=== PATIENT | female | born 1930 | race African-American/Black ===

== ENCOUNTER 2020-12-31 07:15 | Inpatient (IN) ==
[2020-12-31] MEDS ORDERED: BUPIVACAINE 0.5% 50 ML VIAL ONE (08:27)
[2020-12-31] MEDS ORDERED: MIDAZOLAM 2 MG/2 ML VIAL ONE (08:28)
[2020-12-31] MEDS ORDERED: LIDOCAINE 2% 5 ML VIAL ONE (08:28)
[2020-12-31] MEDS ORDERED: SEVOFLURANE 1 UNIT/15 MINUTE INH ONE (08:28)
[2020-12-31] MEDS ORDERED: propofoL 200 MG/20 ML VIAL IV ONE (08:28)
[2020-12-31] MEDS ORDERED: ONDANSETRON 4 MG/2 ML VIAL ONE (08:28)
[2020-12-31] MEDS ORDERED: fentaNYL 100 MCG/2 ML VIAL ONE (08:28)
[2020-12-31] MEDS ORDERED: VANCOMYCIN 1,000 MG VIAL ONE (08:30)
[2020-12-31 08:39] LABS: Basophils % 0.4 % (0.0-0.8); Hematocrit 21.9 VOL% (35.7-47.0); Hemoglobin 6.6 GM/DL (12.0-16.0); Immature Granulocytes % 0.6 %; Immature Granulocytes Absolute 0.06 #; Lymphocytes # 1.3 10*3/uL (1.4-4.0); Lymphocytes % 13.5 % (21.3-54.2); Mean Corpuscular HGB Conc 30.1 GM/DL (32-36); Mean Corpuscular Volume 90.1 FL (87-102); Mean Platelet Volume 8.3 FL (9.6-12.0); Monocytes % 7.7 % (1.7-12.7); Neutrophils % 77.8 % (38.7-73.9); Platelet Count 571 T/CUMM (130-400); Red Blood Count 2.43 MC/CUMM (3.8-5.5); Red Cell Distribution Width 17.9 % (9.3-17.3); White Blood Count 9.2 T/CUMM (4-12)
[2020-12-31] MEDS ORDERED: METOPROLOL TARTRATE 25 MG TABLET ONE (08:45)
[2020-12-31 08:50] LABS: INR 1.1; PT Patient Result 12.2 SECS (10.5-12.0); Partial Thromboplastin Time 25.4 SECS (23.9-33.8)
[2020-12-31] MEDS ORDERED: VANCOMYCIN INJ 1,000 MG in SODIUM CHLORIDE 0.9% 250 ML IV ONE (08:54)
[2020-12-31] MEDS ORDERED: METOPROLOL TARTRATE 25 MG TABLET PO ONE (08:54)
[2020-12-31] MEDS ORDERED: LACTATED RINGERS 1,000 ML IV SCH (09:00)
[2020-12-31 09:04] LABS: Calcium 9.4 MG/DL (8.5-10.1); Hypochromasia 1+; Lymphocytes 14 % (20-55); Microcytosis 1+; Osmolality,Calculated 272.1 MOS/KG (273-304); Polychromasia Slight; Potassium 3.6 MMOL/L (3.5-5.1); Segmented Neutrophils 79 % (50-85); Total Cells Counted 100
[2020-12-31 09:05] LABS: Platelet Estimate Increased
[2020-12-31] MEDS ORDERED: ROPIVACAINE 0.5% 30 ML VIAL ONE (09:16)
[2020-12-31] MEDS ORDERED: FAMOTIDINE 20 MG/2 ML VIAL IV ONE (09:16)
[2020-12-31] MEDS ORDERED: LIDOCAINE 1% 5 ML VIAL ONE (09:16)
[2020-12-31] MEDS ORDERED: DEXAMETHASONE 4 MG/1 ML VIAL ONE (09:16)
[2020-12-31] MEDS ORDERED: PHENYLEPHRINE 1 MG/10 ML SYRINGE IV ONE (10:14)
[2020-12-31] MEDS ORDERED: DEXTROSE 50% 25 GM/50 ML VIAL IV PRN (10:19)
[2020-12-31] MEDS ORDERED: HYDROmorphone 2 MG/1 ML VIAL IV PRN (10:19)
[2020-12-31] MEDS ORDERED: GLUCAGON 1 MG VIAL IM PRN (10:19)
[2020-12-31] MEDS ORDERED: ACETAMINOPHEN 325 MG TABLET PO PRN (10:19)
[2020-12-31] MEDS ORDERED: SODIUM CHLORIDE 0.9% 1,000 ML IV PRN (12:23)
[2020-12-31 12:49] LABS: % Iron Saturation 13.9 % (18-50)
[2020-12-31 13:03] LABS: Ferritin 267.8 ng/ml (8-252)
[2020-12-31] MEDS: INSULIN REGULAR 100 UNIT/ML SUBCUT SCH ×3 (14:07→21:10)
[2020-12-31] MEDS: LACTATED RINGERS 1,000 ML IV SCH (17:58)
[2020-12-31] MEDS ORDERED: METOPROLOL TARTRATE 100 MG TABLET PO SCH (21:00)
[2020-12-31] MEDS: hydroCHLOROthiazide 25 MG TABLET PO SCH (21:09)
[2020-12-31] MEDS: METOPROLOL TARTRATE 50 MG TABLET PO SCH (21:09)
[2020-12-31] MEDS: ASPIRIN EC 81 MG TABLET PO SCH (21:09)
[2020-12-31] MEDS: BRIMONIDINE 0.1% OPH SOLN 5 ML BOTTLE BOTH EYES SCH (21:10)
[2020-12-31] MEDS: VANCOMYCIN INJ 1,000 MG in SODIUM CHLORIDE 0.9% 250 ML IV SCH (21:10)
[2021-01-01 01:09] LABS: Basophils % 0.1 % (0.0-0.8); Immature Granulocytes % 0.6 %; Immature Granulocytes Absolute 0.06 #; Lymphocytes # 1.3 10*3/uL (1.4-4.0); Lymphocytes % 12.3 % (21.3-54.2); Mean Corpuscular HGB Conc 30.4 GM/DL (32-36); Mean Platelet Volume 9.5 FL (9.6-12.0); Monocytes % 6.8 % (1.7-12.7); Neutrophils % 80.2 % (38.7-73.9); Platelet Count 472 T/CUMM (130-400); White Blood Count 10.7 T/CUMM (4-12)
[2021-01-01 01:12] LABS: Hemoglobin 5.2 GM/DL (12.0-16.0)
[2021-01-01 01:13] LABS: Hematocrit 17.1 VOL% (35.7-47.0)
[2021-01-01 03:04] LABS: Potassium 4.5 MMOL/L (3.5-5.1)
[2021-01-01 03:06] LABS: Calcium 8.6 MG/DL (8.5-10.1)
[2021-01-01 03:07] LABS: Osmolality,Calculated 271.2 MOS/KG (273-304)
[2021-01-01] MEDS ORDERED: ENOXAPARIN 30 MG/0.3 ML SYRINGE SUBCUT SCH (04:30)
[2021-01-01] MEDS: INSULIN REGULAR 100 UNIT/ML SUBCUT SCH ×4 (07:47→20:45)
[2021-01-01] MEDS ORDERED: SODIUM CHLORIDE 0.9% 1,000 ML IV PRN (08:02)
[2021-01-01] MEDS: LACTATED RINGERS 1,000 ML IV SCH (08:10)
[2021-01-01 08:29] LABS: Free T4 (Free Thyroxine) 1.83 NG/DL (0.76-1.46)
[2021-01-01] MEDS: VANCOMYCIN INJ 1,000 MG in SODIUM CHLORIDE 0.9% 250 ML IV SCH ×2 (08:52→22:15)
[2021-01-01] MEDS: METOPROLOL TARTRATE 50 MG TABLET PO SCH ×2 (08:53→22:11)
[2021-01-01] MEDS: BRIMONIDINE 0.1% OPH SOLN 5 ML BOTTLE BOTH EYES SCH ×2 (08:55→22:10)
[2021-01-01] MEDS ORDERED: PANTOPRAZOLE 40 MG TABLET PO SCH (09:00)
[2021-01-01] MEDS ORDERED: FERRIC GLUCONATE COMPLEX 125 MG in SODIUM CHLORIDE 0.9% 100 ML IV SCH (09:00)
[2021-01-01] MEDS: SODIUM HYPOCHLORITE 0.25% IRRIG 473 ML BOTTLE TOP SCH ×2 (09:57→23:10)
[2021-01-01] MEDS: ONDANSETRON 4 MG/2 ML VIAL IV PRN ×2 (11:20→17:44)
[2021-01-01] MEDS: ASPIRIN EC 81 MG TABLET PO SCH (22:11)
[2021-01-01] MEDS: hydroCHLOROthiazide 25 MG TABLET PO SCH (22:11)
[2021-01-02] MEDS ORDERED: diphenhydrAMINE CAP 25 MG CAPSULE PO ONE (02:56)
[2021-01-02] MEDS ORDERED: FAMOTIDINE INJ 40 MG in SODIUM CHLORIDE 0.9% 100 ML IV ONE (02:58)
[2021-01-02] MEDS ORDERED: ACETAMINOPHEN 500 MG TABLET PO ONE (03:00)
[2021-01-02 06:50] LABS: Basophils % 0.1 % (0.0-0.8); Hematocrit 19.2 VOL% (35.7-47.0); Immature Granulocytes % 1.6 %; Immature Granulocytes Absolute 0.33 #; Lymphocytes # 1.3 10*3/uL (1.4-4.0); Lymphocytes % 5.9 % (21.3-54.2); Mean Corpuscular HGB Conc 29.2 GM/DL (32-36); Mean Corpuscular Volume 95.5 FL (87-102); Mean Platelet Volume 9.1 FL (9.6-12.0); Monocytes % 8.9 % (1.7-12.7); NRBC # 0.07 10*3/uL; Neutrophils % 83.5 % (38.7-73.9); Platelet Count 516 T/CUMM (130-400); Red Blood Count 2.01 MC/CUMM (3.8-5.5); Red Cell Distribution Width 18.3 % (9.3-17.3); White Blood Count 21.1 T/CUMM (4-12)
[2021-01-02 06:52] LABS: Hemoglobin 5.6 GM/DL (12.0-16.0)
[2021-01-02 07:08] LABS: Hypochromasia 2+; Lymphocytes 6 % (20-55); Microcytosis 1+; Platelet Estimate Adequate; Segmented Neutrophils 85 % (50-85); Total Cells Counted 100
[2021-01-02 07:16] LABS: Calcium 8.8 MG/DL (8.5-10.1); Osmolality,Calculated 271.4 MOS/KG (273-304); Potassium 5.7 MMOL/L (3.5-5.1)
[2021-01-02] MEDS ORDERED: HYDROCORTISONE 100 MG VIAL IV SCH (07:35)
[2021-01-02] MEDS ORDERED: NOREPINEPHRINE 8 MG in SODIUM CHLORIDE 0.9% 242 ML IV PRN (07:37)
[2021-01-02] MEDS ORDERED: NOREPINEPHRINE 4 MG/4 ML VIAL IV ONE ×3 (07:44→07:47)
[2021-01-02] MEDS ORDERED: SODIUM BICARBONATE 50 MEQ/50 ML SYRINGE IV ONE ×2 (07:45→07:47)
[2021-01-02] MEDS ORDERED: EPINEPHrine 1 MG/10 ML SYRINGE ONE ×3 (07:45→08:28)
[2021-01-02] MEDS ORDERED: HYDROCORTISONE 100 MG VIAL ONE (07:45)
[2021-01-02] MEDS ORDERED: CALCIUM CHLORIDE 1,000 MG/10 ML SYRINGE IV ONE ×2 (07:45→08:09)
[2021-01-02] MEDS ORDERED: ATROPINE 1 MG/10 ML SYRINGE ONE ×2 (07:45→07:47)
[2021-01-02] MEDS ORDERED: methylPREDNISolone SOD SUC 125 MG/2 ML VIAL ONE (07:47)
[2021-01-02] MEDS ORDERED: HEPARIN/NACL 0.9% 2 UNITS/ML 1,000 UNIT/500 ML BAG IV ONE (08:21)
[2021-01-02 12:23] VITALS: BP 206/118
[2021-01-03 10:31] LABS: Thyroglob. AB > 2000 IU/mL (<4.0)
[2021-01-05 11:33] LABS: Anti-Nuclear Antibody Pattern Speckled
== END 2021-01-02 08:32 | disposition expired | DRG 256 ==
LOC: N.OR 07:15 → N.SDSINP 07:17 → N.3E 11:45 → N.ICU 01-02 07:38
PROVIDERS: ADMIT Surgery; ATTEND Surgery